=== PATIENT | male | born 1980 | race Caucasian/White ===

== ENCOUNTER → 2020-09-26 07:56 | Outpatient (CLI) | payer OTHER, SELFPAY ==
[2020-09-26 08:27] LABS: Basophils % 0.4 % (0.1-2.0); Eosinophils # 0.2 K/mm3 (0.0-0.4); Eosinophils % 2.6 % (0.1-12.0); Hematocrit 47.2 % (42.0-52.0); Hemoglobin 16.4 g/dL (14.1-18.0); Lymphocytes # 2.5 K/mm3 (0.7-4.5); Lymphocytes % 34.6 % (10-50); Mean Corpuscular HGB Conc 34.7 g/dL (31.8-35.4); Mean Corpuscular Hemoglobin 32.6 pg (27.0-31.2); Mean Corpuscular Volume 94.1 fl (80-94); Mean Platelet Volume 7.7 fl (7.4-10.4); Monocytes # 0.5 K/mm3 (0.1-1.0); Monocytes % 6.7 % (1.7-9.3); Neutrophils # 4.1 K/mm3 (1.8-7.8); Neutrophils % 55.7 % (37.0-80.0); Platelet Count 228 K/mm3 (142-424); Red Blood Count 5.02 M/mm3 (4.60-6.20); Red Cell Distribution Width 12.9 % (11.5-17.5); White Blood Count 7.3 K/mm3 (4.8-10.8)
[2020-09-26 09:02] LABS: Alanine Aminotransferase 33 U/L (12-78); Albumin/Globulin Ratio 1.5 (1.1-1.8); Alkaline Phosphatase 97 U/L (38-126); Aspartate Amino Transferase 27 U/L (17-59); Bilirubin,Total 0.4 mg/dl (0.2-1.3); Blood Urea Nitrogen 13 mg/dl (9-20); Calcium 9.3 mg/dl (8.4-10.2); Carbon Dioxide 25 mmol/L (22.0-30.0); Chloride 108 mmol/L (98-107); Chol/HDL Ratio 4.6 (1-3.5); Cholesterol 213 mg/dl (140-200); Estimated Glomerular Filt Rate 83 ml/min (>60); GFR (African American) 101 ML/MIN (>60); Globulin 2.7 g/dL (1.3-3.2); Glucose 106 mg/dl (74-100); HDL Cholesterol 46 mg/dl (40-60); Sodium 139 mmol/L (136-145); Total Protein,Serum 6.7 g/dl (6.3-8.2); Triglycerides 127 mg/dl (30-150); VLDL Cholesterol 25 mg/dL (0-40)
[2020-09-26 09:13] LABS: Direct LDL Cholesterol 136.29 mg/dL (100-129)
[2020-09-26 09:24] LABS: Erythrocyte Sedimentation Rate 52 mm/hr (0-15)
[2020-09-26 09:32] LABS: Thyroid Stimulating Hormone 4.35 uIU/mL (0.465-4.68)
[2020-09-26 09:50] LABS: Vitamin B12 201 pg/mL (239-931)
== END ==
PROVIDERS: Visit Provider Nurse Practitioner Family
DX: Z00.00 Encounter for general adult medical examination without abnormal findings (principal); R53.81 Other malaise; R51.9 Headache, unspecified
CPT/HCPCS: 36415; 80053; 80061; 82607; 84443; 85025; 85651

== ENCOUNTER 2021-01-30 01:26 | Emergency (ER) | payer OTHER, SELFPAY ==
[2021-01-30] VITALS (8 sets, daily range): BP systolic 100–122; BP diastolic 57–76; PULSE 87–126; RESP 19–21; TEMP 36.8–37.4; O2SAT 94–96; BMI 29.2
--- NOTE | 2021-01-30 02:01 | XR_ITS ---
PROCEDURE INFORMATION: Exam: XR Chest Exam date and time: 01/30/2021 2:01 AM Age: 40 years old Clinical indication: Cough and shortness of breath; Additional info: Cough SOB TECHNIQUE: Imaging protocol: XR of the chest. Views: 2 views. COMPARISON: CR CXR1 CHEST-PORTABLE 10/24/2014 10:28 PM FINDINGS: Lungs: There are patchy interstitial infiltrates scattered throughout both lung zones. Many of the infiltrates have a peripheral distribution. Pleural spaces: Unremarkable. No pleural effusion. No pneumothorax. Heart/Mediastinum: Unremarkable. No cardiomegaly. Bones/joints: Unremarkable. Additional findings: Cholecystectomy has been performed. IMPRESSION: Bilateral patchy infiltrates with a somewhat peripheral distribution, as described. There is no evidence of pulmonary vascular congestion.
--- NOTE | 2021-01-30 02:01 | ECG_ITS ---
APPROVED REPORT Exam: Resting ECG HR:126 bpm ECG Measurements Heart Rate 126 AXES CA 126 P 32 QRSd 88 QRS 2 QT 306 T 15 QTc 443 Conclusion Sinus tachycardia Changes of left ventricular hypertrophy Abnormal ECG Electronically signed by : Herbert Alva MD 01/30/2021 18:08:04
--- NOTE | 2021-01-30 02:01 | CT_ITS ---
PROCEDURE INFORMATION: Exam: CTA Chest With Contrast Exam date and time: 01/30/2021 2:01 AM Age: 40 years old Clinical indication: Cough and shortness of breath; Additional info: Cough, elevated hr TECHNIQUE: Imaging protocol: Computed tomographic angiography of the chest with contrast. 3D rendering (Not supervised by radiologist): MIP and/or 3D reconstructed images were created by the technologist. Radiation optimization: All CT scans at this facility use at least one of these dose optimization techniques: automated exposure control; mA and/or kV adjustment per patient size (includes targeted exams where dose is matched to clinical indication); or iterative reconstruction. Contrast material: ISOVUE 370; Contrast volume: 75 ml; Contrast route: INTRAVENOUS (IV); COMPARISON: CR XR CHEST 2V 01/30/2021 2:11 AM FINDINGS: Pulmonary arteries: The pulmonary trunk, main, and branch pulmonary arteries contain no filling defects. Aorta: Unremarkable. No aortic aneurysm. No aortic dissection. Lungs: There are extensive interstitial infiltrates identified within both lung smith. No particular predilection for upper or lower lobes. The infiltrates are amorphous and peripheral in position. Primary diagnostic consideration would be viral interstitial pneumonitis such as could be caused by Covid 19. There is a calcified granuloma identified within the left upper lobe. This is seen in conjunction with calcified lymph nodes within the left hilus, compatible with old healed granulomatous disease. Pleural spaces: Unremarkable. No pneumothorax. No pleural effusion. Heart: No cardiomegaly. No pericardial effusion. Heart RV/LV ratio: Within normal limits. Coronary arteries: There is no evidence of significant coronary artery calcifications. Mediastinal space: No evidence of mediastinal or hilar mass. Lymph nodes: See Lungs finding. Bones/joints: Unremarkable. No acute fracture. Soft tissues: Unremarkable. IMPRESSION: 1. No evidence of main or branch pulmonary embolism. 2. There are extensive amorphous interstitial infiltrates with a peripheral distribution within both lung smith. Primary diagnostic consideration is viral interstitial pneumonitis such as could be caused by Covid 19.
[2021-01-30 02:32] LABS: Basophils % 0.2 % (0.1-2.0); Eosinophils % 0.1 % (0.1-12.0); Hematocrit 49.3 % (42.0-52.0); Influenza A, PCR Not Detected (NotDetected); Influenza B, PCR Not Detected (NotDetected); Lymphocytes # 0.9 K/mm3 (0.7-4.5); Lymphocytes % 9.7 % (10-50); Mean Corpuscular HGB Conc 34.6 g/dL (31.8-35.4); Mean Corpuscular Hemoglobin 33.6 pg (27.0-31.2); Mean Corpuscular Volume 97.1 fl (80-94); Mean Platelet Volume 8.4 fl (7.4-10.4); Monocytes # 0.5 K/mm3 (0.1-1.0); Monocytes % 5.3 % (1.7-9.3); Neutrophils # 7.7 K/mm3 (1.8-7.8); Neutrophils % 84.7 % (37.0-80.0); Platelet Count 215 K/mm3 (142-424); Red Blood Count 5.07 M/mm3 (4.60-6.20); Red Cell Distribution Width 12.4 % (11.5-17.5); White Blood Count 9.1 K/mm3 (4.8-10.8)
[2021-01-30 02:37] LABS: Alanine Aminotransferase 48 U/L (12-78); Alkaline Phosphatase 111 U/L (38-126); Anion Gap 18.3 mEq/L (5-15); Aspartate Amino Transferase 47 U/L (17-59); Bilirubin,Direct 0.5 mg/dl (0.0-0.4); Bilirubin,Indirect 0.4 mg/dL (0.0-0.9); Bilirubin,Total 0.9 mg/dl (0.2-1.3); Bilirubin,Unconjugated 0.5 mg/dL (0.0-1.1); Blood Urea Nitrogen 17 mg/dl (9-20); Calcium 8.6 mg/dl (8.4-10.2); Carbon Dioxide 22 mmol/L (22.0-30.0); Chloride 104 mmol/L (98-107); Creatinine Clearance Estimated 134 mL/min (50-200); Estimated Glomerular Filt Rate 83 ml/min (>60); GFR (African American) 101 ML/MIN (>60); Glucose 118 mg/dl (74-100); Potassium 3.3 mmoL/L (3.5-5.1); Sodium 141 mmol/L (136-145); Total Protein,Serum 7.4 g/dl (6.3-8.2)
[2021-01-30 02:42] LABS: C-Reactive Protein 88.5 mg/L (0-4)
[2021-01-30 02:55] LABS: Troponin I < 0.01 ng/ml (0.00-0.034)
[2021-01-30 02:56] LABS: Procalcitonin 0.186 ng/mL (0.0-2.0); T4 (Thyroxine) 11.9 ug/dl (5.53-11.0)
[2021-01-30 03:02] LABS: Coronavirus 19, PCR Detected (NotDetected); Erythrocyte Sedimentation Rate 25 mm/hr (0-15)
[2021-01-30 03:10] LABS: Thyroid Stimulating Hormone 2.72 uIU/mL (0.465-4.68)
--- NOTE | 2021-01-30 04:54 | [facility].EDSOB ---
ED Disposition Clinical Impression: COVID-19, COVID-19 with pulmonary comorbidity, Overweight (BMI 25.0-29.9) Disposition: Home, Self-Care Condition on Discharge: Good Instructions: DI for COVID-19 (Suspected or Confirmed ) Additional Instructions: fluids and call pcp this am Referrals: Herbert Alva MD [Primary Care Provider] - - Critical Care Critical Care Time: No Attestation: On 01/30/21, the high probability of a clinically significant, sudden or life threatening deterioration of the following system(s) required my full and direct attention, intervention and personal management. The time I documented below is in addition to time spent performing reported procedures but includes the following listed in this critical care notation. Medical Decision Making - Medical Records Medical records reviewed: Yes: I reviewed the patient's medical records. - Mike Inquiry Pt receiving controlled substance: No Vital Signs: 01/30/21 01:27 01/30/21 02:00 01/30/21 02:30 Temperature 99.3 F Temperature Source Oral Pulse Rate 122 H 112 H Pulse Rate [Apical] 126 H Respiratory Rate 20 21 Blood Pressure 116/73 122/57 L Blood Pressure [Right Arm] 118/76 Blood Pressure Mean [Right Arm] 90 Blood Pressure Source Automatic Cuff Blood Pressure Source [Right Arm] Automatic Cuff Blood Pressure Position Supine Blood Pressure Position [Right Arm] Sitting 02 Sat by Pulse Oximetry 95 96 95 Oxygen Delivery Method Room Air Room Air Room Air 01/30/21 03:30 01/30/21 04:00 01/30/21 04:30 Temperature Temperature Source Pulse Rate 105 H 96 H 94 H Pulse Rate [Apical] Respiratory Rate Blood Pressure 112/66 116/65 100/71 L Blood Pressure [Right Arm] Blood Pressure Mean [Right Arm] Blood Pressure Source Automatic Cuff Blood Pressure Source [Right Arm] Blood Pressure Position Supine Blood Pressure Position [Right Arm] 02 Sat by Pulse Oximetry 95 94 L 95 Oxygen Delivery Method Room Air Room Air Room Air 01/30/21 05:00 Temperature Temperature Source Pulse Rate 92 H Pulse Rate [Apical] Respiratory Rate Blood Pressure 116/62 Blood Pressure [Right Arm] Blood Pressure Mean [Right Arm] Blood Pressure Source Blood Pressure Source [Right Arm] Blood Pressure Position Blood Pressure Position [Right Arm] 02 Sat by Pulse Oximetry 96 Oxygen Delivery Method - Lab Data Lab results reviewed: Yes: I reviewed the patient's lab results. Lab Results 01/30/21 01:47: WBC 9.1, RBC 5.07, Hgb 17.0, Hct 49.3, MCV 97.1 H, MCH 33.6 H, MCHC 34.6, RDW 12.4, Plt Count 215, MPV 8.4, Neut % (Auto) 84.7 H, Lymph % (Auto) 9.7 L, Crowley % (Auto) 5.3, Eos % (Auto) 0.1, Baso % (Auto) 0.2, Neut # (Auto) 7.7, Lymph # (Auto) 0.9, Crowley # (Auto) 0.5, Eos # (Auto) 0.0, Baso # (Auto) 0.0, ESR 25 H 01/30/21 01:47: Sodium 141, Potassium 3.3 L, Chloride 104, Carbon Dioxide 22, Anion Gap 18.3 H, BUN 17, Creatinine 1.00, Estimated Creat Clear 134, Estimated GFR 83, Est GFR ( Amer) 101, Glucose 118 H, Calcium 8.6, Total Bilirubin 0.9, Direct Bilirubin 0.5 H, Conjugated Bilirubin 0.0, Indirect Bilirubin 0.4, Unconjugated Bilirubin 0.5, AST 47, ALT 48, Alkaline Phosphatase 111, Troponin I < 0.01, C-Reactive Protein 88.5 H, Total Protein 7.4, Albumin 4.0, Procalcitonin 0.186, TSH 2.72, Thyroxine (T4) 11.9 H 01/30/21 01:47: SARS-CoV-2 (PCR) Detected A, Influenza A Untype (PCR) Not detected, Influenza Type B (PCR) Not detected Result diagrams: 01/30/21 01:47 01/30/21 01:47 Orders (Tests/Meds): ED MEDICATIONS Generic Name Dose Route Start Last Admin Trade Name Freq PRN Reason Stop Dose Admin Lactated Ringer's 1,000 mls @ 999 mls/hr 01/30/21 02:15 01/30/21 02:15 Lactated Ringer's 1000 Ml Bag IV 01/30/21 03:15 999 mls/hr .Q1H1M CARLIE Administration Lactated Ringer's 1,000 mls @ 999 mls/hr 01/30/21 03:45 01/30/21 03:36 Lactated Ringer's 1000 Ml Bag IV 01/30/21 04:45 999 mls/hr .Q1H1M S
== END 2021-01-30 06:11 | disposition home or self-care (01) ==
PROVIDERS: Emergency Provider Emergency Medicine; PCP Internal Medicine Adolescent Medicine
DX: U07.1 COVID-19 (principal)
CPT/HCPCS: 71046; 71275; 80048; 80076; 84145; 84436; 84443; 84484; 85025; 85651; 86140; 93005; 96365; 96366; 96375; 99284; C9803; Q9967; U0003; U0005

== ENCOUNTER → 2021-01-31 14:10 | Outpatient (CLI) | payer OTHER, SELFPAY ==
[2021-01-31 13:40] VITALS: BP 110/69; PULSE 110; RESP 20; O2SAT 93
[2021-01-31 13:55] VITALS: BP 110/61; PULSE 109; RESP 20; O2SAT 94
[2021-01-31 14:10] VITALS: BP 102/62; PULSE 108; RESP 18; O2SAT 95
[2021-01-31 14:25] VITALS: BP 110/65; PULSE 110; RESP 20; O2SAT 95
[2021-01-31 14:40] VITALS: BP 108/66; PULSE 109; RESP 18; O2SAT 96
[2021-01-31 14:55] VITALS: BP 107/62; PULSE 111; RESP 18; O2SAT 96
== END ==
PROVIDERS: PCP Emergency Medicine; Visit Provider Emergency Medicine
DX: U07.1 COVID-19 (principal)
CPT/HCPCS: 96365